=== PATIENT | female | born 1975 | race Caucasian/White ===

== ENCOUNTER 2024-06-04 06:53 | Day surgery (SDC) | payer MEDICARE, SELFPAY ==
[2024-06-03 13:35] LABS: Basophils % (Auto) 0 % (0-2.5); Eosinophils # (Auto) 0.1 Thou/mm3 (0.0-0.5); Eosinophils % (Auto) 1 % (0-10); Hematocrit 45.6 % (36.0-46.0); Immature Granulocytes % (Auto) 0 % (0-0); Immature Granulocytes Auto 0.05 Thou/mm3 (0.00-0.00); Lymphocytes # (Auto) 1.6 Thou/mm3 (1.0-4.8); Lymphocytes % (Auto) 11 % (10-50); Mean Corpuscular HGB Conc 32.9 g/dl (31.0-37.0); Mean Corpuscular Volume 91 fL (80-100); Monocytes # (Auto) 1.2 Thou/mm3 (0.0-0.8); Monocytes % (Auto) 8 % (0-12); Neutrophils % (Auto) 79 % (37-80); Nucleated Red Blood Cell % 0 /100 WBC (0); Platelet Count 315 Thou/mm3 (140-440); RDW Standard Deviation 44.3 fL (36.4-46.3); White Blood Count 13.9 Thou/mm3 (3.6-11.0)
[2024-06-03 13:48] LABS: Partial Thromboplastin Time 25.4 Seconds (22.0-36.0)
[2024-06-03 13:52] LABS: HCG,Qualitative Serum Positive
[2024-06-03 13:53] LABS: Anion Gap 12 (7-16); BUN/Creatinine Ratio 8 Ratio (12-20); Blood Urea Nitrogen 30 mg/dL (9-23); Calcium 11.1 mg/dL (8.3-10.6); Carbon Dioxide 27.2 mMol/L (20.0-31.0); Chloride 101 mMol/L (98-107); Creatinine (Component) 3.7 mg/dL (0.6-1.3); Estimated Creatinine Clearance 19.2 mL/min (>60); Glucose 151 mg/dL (74-106); Osmolality,Calculated 288 (275-295); Potassium 4.5 mMol/L (3.4-5.1); Sodium 140 mMol/L (136-145); eGFR 15 See Note
[2024-06-04] VITALS (16 sets, daily range): BP systolic 113–180; BP diastolic 59–100; PULSE 69–90; RESP 12–21; TEMP 36.1–36.4; O2SAT 88–100; BMI 29.7
[2024-06-04 07:43] LABS: Beta HCG,Quantitative 11 mIU/mL (<5.0)
--- NOTE | 2024-06-04 09:00 | ESOP_ITS ---
Cardiac Cath Procedure Procedure Name Date of procedure: 06/04/2024 CLINICAL PHLEBOTOMIST: Esteban Louis MD PROCEDURE PERFORMED: 1. Left heart cardiac catheterization including right, left coronary angiograms and left ventriculogram 2. Ultrasound-guided access of the right radial artery 3. Conscious sedation for 30 minutes. Procedure Narrative HISTORY AND INDICATIONS: 48-year-old female with a past medical history of end- stage renal disease since 2016, initially on hemodialysis stopped because of clotted AV fistula or stenosed, on peritoneal dialysis for the last 3 years 6 days a week, renal disease secondary to the hypertension, possible hypertensive retinopathy with decreased peripheral vision, essential hypertension, hyperlipidemia, insomnia, anemia of chronic kidney disease, obesity, had a positive nuclear stress test that showed mild reversive decrease uptake in the apical with decreased intake more pronounced in the stress compared to rest suggesting possible ischemia and hence patient was scheduled for the elective left heart cardiac catheterization. Patient was explained the risk, benefits and alternatives of performing a left heart cardiac catheterization including the risk of bleeding, heart attack, stroke and in detail and the patient agreed for the procedure. Consent signed, placed in the chart and H&P updated. Patient was explained the risk benefits and alternatives of performing a left heart cardiac catheterization including the risk of bleeding, heart attack, stroke and in detail and the agreeable for the procedure. Consent signed, placed in the chart and H&P updated. DESCRIPTION OF PROCEDURE: The patient was brought to the cardiac catheterization lab and all asceptic precautions were followed. Patient was given 1 Mg of Versed and 50 mcg of fentanyl for moderate conscious sedation. 2 mL of lidocaine was given in the right wrist. The right radial artery was accessed via the ultrasound guidance as well as micropuncture technique. A 6 Estonian glide sheath was introduced. We then used a 5 Estonian TIG 4 catheter to perform the left and right coronary angiograms as well as a left ventriculogram which showed the following findings. 1. Left ventricular ejection fraction was normal at 60 to 65% without any regio nal wall motion abnormalities. LVEDP was normal at 6 mmHg. There was no significant transvalvular aortic gradient. 2. Right dominant circulation 3. Left main artery is a large-caliber vessel without any significant stenosis. 4. LAD is a large sized artery with a medium size diagonal and without show any significant disease. 5. LCx is a large sized artery with medium OM1 and small OM2 without any significant disease. 6. RCA is a large artery with medium RPDA and RPL without any significant disease. A radial band was used to achieve the hemostasis of the right radial artery access. Patient will be monitored in the cardiac residential builder for the next 2 to 3 hours and will be discharged home / telemetry later today if hemodynamically stable. Complications: None Specimens: None Blood loss: Estimated 5-10 ml Summary/findings: 1. Abnornal Stress test: LHC showed normal coronaries without any angiographically significant obstruction. 2. LVEF was normal at 60-65% and normal LVEDP of 6 mmHg. No transvalvular aortic gradient. Recommendations: 1. Recommended aggressive risk factor modification and aggressive medical treatment 2. Recommended no lifting more than 5 pounds for next 7-10 days and follow up in my office in 7 days. Esteban Louis MD Interventional Cardiology.
[2024-06-04] MEDS: ACETAMINOPHEN 325 MG TABLET 650 MG PO (10:35)
[2024-06-04] MEDS: cloNIDine HCL 0.1 MG TABLET 0.2 MG PO (10:36)
--- NOTE | 2024-06-04 12:26 | PD.GYNCONS ---
TECHNICAL DOCUMENT WRITER HPI Data of Consult Requesting Physician: Esteban Louis MD Primary Care Provider: Chuck Gates MD Consult Narrative Reason for consult: other (Positive hCG) History of present illness: Patient is a 48-year-old female with end-stage renal disease who was today scheduled for cardiac Claims Processor and was incidentally noted to have positive serum hCG during her preoperative workup. Patient reports a previous history of tubal sterilization. Reflex quantitative serum hCG was 11 milliunits/mL. Patient has been sexually active with unprotected intercourse, she denies any other gynecologic complaints at this time. cc:: cc: Esteban Louis MD Review of Systems Review of Systems Systems Reviewed: All systems reviewed, normal except as documented Meds Home Medications and Allergies Home Medications ?Medication ?Instructions ?Recorded ?Confirmed ?Type amlodipine 5 mg-benazepril 40 mg 1 cap PO QDAY 02/18/18 06/02/24 History capsule clonidine HCl 0.1 mg tablet 0.2 mg PO BID 02/18/18 06/02/24 History trazodone 50 mg tablet 50 mg PO HS PRN Sleep 04/01/20 06/02/24 History aspirin 81 mg capsule,delayed 81 mg PO DAILY 06/02/24 06/02/24 History release atorvastatin 20 mg tablet 40 mg PO QDAY 06/02/24 06/04/24 History furosemide 40 mg tablet 40 mg PO BID 06/02/24 06/02/24 History potassium chloride 10 mEq 10 meq PO QDAY 06/02/24 06/02/24 History tablet,extended release vitamin B complex-vitamin C-folic 1 tab PO QDAY 06/04/24 06/04/24 History acid 800 mcg chewable tablet (Dialyvite 800) Allergies Allergy/AdvReac Type Severity Reaction Status Date / Time amoxicillin Allergy Severe Rash Verified 08/28/23 16:55 aspirin Allergy Severe SICK TO Verified 08/28/23 16:55 STOMACH codeine Allergy Severe Rash Verified 08/28/23 16:55 latex Allergy Severe Rash Verified 08/28/23 16:55 Penicillins Allergy Severe Rash Verified 08/28/23 16:55 Exam - TECHNICAL DOCUMENT WRITER Vital Signs Temp Pulse Resp BP Pulse Ox O2 Del Method O2 Flow Rate 97.5 F 80 16 128/62 95 Room Air 3 06/04/24 09:30 06/04/24 12:00 06/04/24 12:00 06/04/24 12:00 06/04/24 12:00 06/04/24 12:00 06/04/24 09:54 Narrative Exam Gynecologic exam deferred due to patient's impending procedure TECHNICAL DOCUMENT WRITER - Results Labs 06/03/24 12:57 06/03/24 12:57 Labs: Short CBC 06/03/24 Range/Units 12:57 WBC 13.9 H (3.6-11.0) Thou/mm3 Hgb 15.0 (12.0-16.0) g/dL Hct 45.6 (36.0-46.0) % Plt Count 315 (140-440) Thou/mm3 BMP 06/03/24 12:57 Sodium 140 Potassium 4.5 Chloride 101 Carbon Dioxide 27.2 BUN 30 H Creatinine 3.7 H Glucose 151 H Calcium 11.1 H Assessment and Plan Assessment and plan (1) Elevated serum hCG: Status: Acute Assessment and plan: 48-year-old with incidentally positive serum hCG for unrelated procedure Positive serum hCG most likely to be due to heterophile antibodies due to patient's end-stage renal disease as well as other medications. Patient endorses a history of surgical sterilization. Serum hCG titer of 11 milliunits is extremely low and usually at discriminatory zone of 3500 or above would be required to visualize any intra or extrauterine . At this time the recommendation is to follow-up as outpatient with serial serum hCGs to trend if the hCG titers are rising or dropping or staying constant. This would help determine the clinical significance and further action is needed. Patient can follow-up as outpatient with her PCP or her FOUNDRY MOLDER for the above.
--- NOTE | 2024-06-04 14:24 | PC.NURSE ---
1230 patient is awake, alert, breathing unlabored, s/p LHC under IV sedation, report received from Shelby VICTOR, gabriel to start getting patient ready to go home now. 1311 patient is awake, alert, breathing unlabored, dressing to right wrist dry with no bleeding or hematoma, patient able to ambulate to bathroom and void, meets discharge criteria, discharge instructions given to patient and connie osborn, patient discharged home in wheelchair with all belongings.
== END 2024-06-04 13:11 | disposition home or self-care (01) ==
PROVIDERS: PCP Internal Medicine; Referring Provider Internal Medicine Cardiovascular Disease; Visit Provider Internal Medicine Cardiovascular Disease
PROC: (CPT 93458; principal; 2024-06-04 08:30)
DX: I25.10 Atherosclerotic heart disease of native coronary artery without angina pectoris (principal); I12.0 Hypertensive chronic kidney disease with stage 5 chronic kidney disease or end stage renal disease; N18.6 End stage renal disease; Z99.2 Dependence on renal dialysis; E78.5 Hyperlipidemia, unspecified; G47.00 Insomnia, unspecified; D63.1 Anemia in chronic kidney disease; E66.9 Obesity, unspecified; H35.039 Hypertensive retinopathy, unspecified eye; Z68.29 Body mass index [BMI] 29.0-29.9, adult
CPT/HCPCS: 93458; 36415; 80048; 84702; 84703; 85025; 85610; 85730; 99152; A4649; C1769; C1887; C1894; J0171; J0461; J1643; J2250; J2310; J2371; J3010; J3490; Q9967; A9270; J1644; J2305

== ENCOUNTER → 2024-06-12 | Outpatient (CLI) | payer MEDICARE, SELFPAY ==
[2024-06-12 14:44] LABS: HCG,Qualitative Serum Positive
== END | disposition home or self-care (01) ==
PROVIDERS: PCP Internal Medicine; Referring Provider Internal Medicine; Visit Provider Internal Medicine
DX: R87.1 Abnormal level of hormones in specimens from female genital organs (principal); Z32.01 Encounter for pregnancy test, result positive
CPT/HCPCS: 36415; 84703

== ENCOUNTER → 2024-06-18 | Outpatient (CLI) | payer MEDICARE, OTHER, SELFPAY ==
[2024-06-18 13:53] LABS: Beta HCG,Quantitative 6 mIU/mL (<5.0)
--- NOTE | 2024-06-18 14:30 | XR_ITS ---
Examination: OB Transvaginal ultrasound of the pelvis, complete Technique: Transvaginal sonographic images pelvis performed using robles scale imaging Exam date and time: June 18, 2024 1324 hours INDICATIONS: Positive hCG on June 12, 2024, history tubal ligation 23 years ago FINDINGS: Uterus 8.9 x 4.6 x 6.0 cm anteverted No intrauterine gestation Endometrial stripe 11 mm Benign lower uterine segment cervical cyst Right ovary 2.9 x 1.7 x 3.1 cm arterial flow, 15 mm follicular cyst Left ovary obscured by bowel gas IMPRESSION: No uterine mass or intrauterine gestation.
== END | disposition home or self-care (01) ==
PROVIDERS: PCP Internal Medicine; Referring Provider Internal Medicine; Visit Provider Radiology Diagnostic Radiology
DX: R89.1 Abnormal level of hormones in specimens from other organs, systems and tissues (principal)
CPT/HCPCS: 36415; 76817; 84702